=== PATIENT | female | born 1985 | race African-American/Black ===

== ENCOUNTER 2017-03-15 11:24 | Emergency (ER) | payer SELFPAY ==
[~2017-03-15] VITALS: Ht 170.2 cm; Wt 100.0 kg
[2017-03-15] MEDS ORDERED: BACITRACIN ZINC OINT UDPKT TOP ONE (13:15)
[2017-03-15] MEDS ORDERED: KETOROLAC 30MG/ML VIAL IM ONE (13:30)
[2017-03-15] MEDS ORDERED: LIDOCAINE HCL 1% 20ML VIAL (Pyxis) INJ INFIL ONE (13:30)
[2017-03-15 14:05] LABS: HCG SCREEN NEGATIVE
[2017-03-15] MEDS ORDERED: HYDROCODONE/ACETAMINOPHEN 5/325MG TABLET PO ONE (18:00)
[2017-03-15 18:14] VITALS: BP 120/75
== END 2017-03-15 18:17 | disposition home or self-care (01) ==
LOC: ER 11:36
DX: S01.01XA Laceration without foreign body of scalp, initial encounter (principal); M25.531 Pain in right wrist; M79.661 Pain in right lower leg; V43.62XA Car passenger injured in collision with other type car in traffic accident, initial encounter; Y93.89 Activity, other specified; Y92.488 Other paved roadways as the place of occurrence of the external cause
CPT/HCPCS: 12013; 70450; 73110; 73590; 84703; 96372; 99285; J1885; J3490; J7030; Z7610

== ENCOUNTER 2017-03-17 10:01 | Emergency (ER) | payer SELFPAY ==
[~2017-03-17] VITALS: Ht 177.8 cm; Wt 86.0 kg
[2017-03-17 10:56] VITALS: BP 106/71
[2017-03-17] MEDS ORDERED: BACITRACIN ZINC OINT UDPKT TOP ONE (11:15)
== END 2017-03-17 11:59 | disposition home or self-care (01) ==
LOC: ER 11:03
DX: S01.81XD Laceration without foreign body of other part of head, subsequent encounter (principal); V89.2XXD Person injured in unspecified motor-vehicle accident, traffic, subsequent encounter; Y99.8 Other external cause status; Y92.89 Other specified places as the place of occurrence of the external cause
CPT/HCPCS: 81025; 99283

== ENCOUNTER 2017-03-21 10:47 | Emergency (ER) | payer MEDICAID, OTHER ==
[~2017-03-21] VITALS: Ht 165.1 cm; Wt 102.0 kg
[2017-03-21 11:16] VITALS: BP 122/70
== END 2017-03-21 13:46 | disposition left against medical advice (07) ==
LOC: ER 12:43
DX: Z09 Encounter for follow-up examination after completed treatment for conditions other than malignant neoplasm (principal)
CPT/HCPCS: 99281; Z7610

== ENCOUNTER 2017-03-29 12:07 | Emergency (ER) | payer MEDICAID ==
[~2017-03-29] VITALS: Ht 172.7 cm; Wt 99.4 kg
[2017-03-29 12:13] VITALS: BP 107/61
== END 2017-03-29 15:09 | disposition home or self-care (01) ==
LOC: ER 12:07
DX: Z48.02 Encounter for removal of sutures (principal)
CPT/HCPCS: 99281; Z7610